=== PATIENT | female | born 1990 | race Caucasian/White ===

== ENCOUNTER → 2018-12-28 | Outpatient (REF) | payer OTHER | LOC: M SFHCLERA 10:33 | PROVIDERS: ATTEND Nurse Practitioner Family | DX: R53.81 Other malaise (principal) ==

== ENCOUNTER → 2020-02-23 | Outpatient (REF) | payer OTHER ==
[2020-02-23 15:19] LABS: BASO % 0.6 % (0.0-1.0); EOS # 0.2 10^3/uL (0.0-0.5); EOS % 2.8 % (0.0-3.0); HEMATOCRIT 44.5 % (36.0-47.0); HEMOGLOBIN 14.5 g/dl (12.0-15.5); LYMPH # 2.1 10^3/uL (1.5-5.0); LYMPH % 29.1 % (24.0-44.0); MEAN CORPUSCULAR HEMOGLOBIN 29.3 pg (27.0-33.0); MEAN CORPUSCULAR HGB CONC 32.6 g/dl (32.0-36.5); MEAN CORPUSCULAR VOLUME 89.9 fl (80.0-96.0); MONO # 0.4 10^3/uL (0.0-0.8); NEUTROPHILS # 4.5 10^3/uL (1.5-8.5); NEUTROPHILS % 62.2 % (36.0-66.0); PLATELET COUNT, AUTOMATED 190 10^3/uL (150-450); RED BLOOD COUNT 4.95 10^6/uL (4.00-5.40); WHITE BLOOD COUNT 7.2 10^3/uL (4.0-10.0)
[2020-02-23 15:37] LABS: ALBUMIN 3.3 GM/DL (3.2-5.2); ALT/SGPT 20 U/L (12-78); BILIRUBIN,TOTAL 0.4 MG/DL (0.2-1.0); BLOOD UREA NITROGEN 13 MG/DL (7-18); CALCIUM LEVEL 9.2 MG/DL (8.5-10.1); CARBON DIOXIDE LEVEL 29 MEQ/L (21-32); CHLORIDE LEVEL 102 MEQ/L (98-107); CHOLESTEROL LEVEL 235 MG/DL (<200); CHOLESTEROL RISK RATIO 4.051 (<5); CREATININE FOR GFR 0.61 MG/DL (0.55-1.30); FREE T4 1.07 NG/DL (0.76-1.46); GLOMERULAR FILTRATION RATE > 60.0 (>60); GLUCOSE, FASTING 194 MG/DL (70-100); HDL CHOLESTEROL 58 MG/DL (>40); LDL CHOLESTEROL 139 MG/DL (<100); NON-HDL-C 177 MG/DL; POTASSIUM SERUM 4.3 MEQ/L (3.5-5.1); SODIUM LEVEL 135 MEQ/L (136-145); TOTAL 25(OH) VITAMIN D 15.4 NG/ML (30.0-100.0); TOTAL PROTEIN 7.8 GM/DL (6.4-8.2); TRIGLYCERIDES LEVEL 188 MG/DL (<150)
[2020-02-23 15:42] LABS: HEMOGLOBIN A1c 8.9 %
== END ==
LOC: M LAB REF 14:44
PROVIDERS: ATTEND Physician Assistant
DX: Z68.42 Body mass index [BMI] 45.0-49.9, adult (principal); E66.01 Morbid (severe) obesity due to excess calories; Z83.49 Family history of other endocrine, nutritional and metabolic diseases; E28.2 Polycystic ovarian syndrome; R03.0 Elevated blood-pressure reading, without diagnosis of hypertension; F17.200 Nicotine dependence, unspecified, uncomplicated

== ENCOUNTER → 2020-08-27 | Outpatient (REF) | payer OTHER ==
[2020-08-27 13:56] LABS: BASO % 0.4 % (0.0-1.0); EOS # 0.2 10^3/uL (0.0-0.5); EOS % 1.8 % (0.0-3.0); HEMATOCRIT 45.5 % (36.0-47.0); HEMOGLOBIN 14.3 g/dl (12.0-15.5); LYMPH # 2.4 10^3/uL (1.5-5.0); LYMPH % 24.9 % (24.0-44.0); MEAN CORPUSCULAR HGB CONC 31.4 g/dl (32.0-36.5); MEAN CORPUSCULAR VOLUME 89.2 fl (80.0-96.0); MONO # 0.5 10^3/uL (0.0-0.8); MONO % 5.4 % (0.0-5.0); NEUTROPHILS # 6.5 10^3/uL (1.5-8.5); NEUTROPHILS % 67.2 % (36.0-66.0); PLATELET COUNT, AUTOMATED 188 10^3/uL (150-450); WHITE BLOOD COUNT 9.7 10^3/uL (4.0-10.0)
[2020-08-27 14:11] LABS: HEMOGLOBIN A1c 6.8 %
[2020-08-27 14:27] LABS: ALBUMIN 3.9 GM/DL (3.2-5.2); ALT/SGPT 18 U/L (12-78); BILIRUBIN,TOTAL 0.4 MG/DL (0.2-1.0); BLOOD UREA NITROGEN 12 MG/DL (7-18); CALCIUM LEVEL 9.1 MG/DL (8.5-10.1); CARBON DIOXIDE LEVEL 28 MEQ/L (21-32); CHLORIDE LEVEL 105 MEQ/L (98-107); CHOLESTEROL LEVEL 164 MG/DL (<200); CHOLESTEROL RISK RATIO 3.813 (<5); CREATININE FOR GFR 0.69 MG/DL (0.55-1.30); FREE T4 0.97 NG/DL (0.76-1.46); GLOMERULAR FILTRATION RATE > 60.0 (>60); GLUCOSE, FASTING 118 MG/DL (70-100); HDL CHOLESTEROL 43 MG/DL (>40); LDL CHOLESTEROL 95 MG/DL (<100); NON-HDL-C 121 MG/DL; POTASSIUM SERUM 4.2 MEQ/L (3.5-5.1); SODIUM LEVEL 139 MEQ/L (136-145); TOTAL PROTEIN 7.8 GM/DL (6.4-8.2); TRIGLYCERIDES LEVEL 128 MG/DL (<150)
[2020-08-27 14:28] LABS: HEPATITIS B SURFACE ANTIBODY POSITIVE (POSITIVE); TOTAL 25(OH) VITAMIN D 27.6 NG/ML (30.0-100.0)
[2020-08-27 18:19] LABS: CREATININE, URINE 26.3 MG/DL
== END ==
LOC: M LAB REF 12:42
PROVIDERS: ATTEND Physician Assistant
DX: Z76.89 Persons encountering health services in other specified circumstances (principal); E55.9 Vitamin D deficiency, unspecified; E78.2 Mixed hyperlipidemia; E11.65 Type 2 diabetes mellitus with hyperglycemia

== ENCOUNTER 2020-10-17 11:19 | Emergency (ER) | payer OTHER ==
[~2020-10-17] VITALS: Ht 165.1 cm; Wt 132.5 kg
[2020-10-17] MEDS ORDERED: METF10004 (11:32)
[2020-10-17] MEDS ORDERED: ERRI0.355 (11:32)
[2020-10-17] MEDS ORDERED: ATOR1TAB19 (11:32)
[2020-10-17 12:40] LABS: BASO # 0.1 10^3/uL (0.0-0.2); BASO % 0.5 % (0.0-1.0); EOS # 0.2 10^3/uL (0.0-0.5); HEMATOCRIT 41.7 % (36.0-47.0); HEMOGLOBIN 13.2 g/dl (12.0-15.5); LYMPH # 2.7 10^3/uL (1.5-5.0); MEAN CORPUSCULAR HEMOGLOBIN 27.6 pg (27.0-33.0); MEAN CORPUSCULAR HGB CONC 31.7 g/dl (32.0-36.5); MEAN CORPUSCULAR VOLUME 87.1 fl (80.0-96.0); MONO # 0.5 10^3/uL (0.0-0.8); MONO % 4.7 % (0.0-5.0); NEUTROPHILS # 6.5 10^3/uL (1.5-8.5); NEUTROPHILS % 65.4 % (36.0-66.0); PLATELET COUNT, AUTOMATED 207 10^3/uL (150-450); RED BLOOD COUNT 4.79 10^6/uL (4.00-5.40); WHITE BLOOD COUNT 9.9 10^3/uL (4.0-10.0)
[2020-10-17 12:50] LABS: INR 0.86; PROTHROMBIN TIME 11.9 SECONDS (12.5-14.3)
[2020-10-17 12:51] LABS: PARTIAL THROMBOPLASTIN TIME 28.1 SECONDS (24.2-38.5)
[2020-10-17 13:08] LABS: HCG, SERUM QUALITATIVE NEGATIVE (NEGATIVE)
[2020-10-17 13:28] LABS: ALBUMIN 3.5 GM/DL (3.2-5.2); ALT/SGPT 23 U/L (12-78); AMYLASE 47 U/L (25-115); BILIRUBIN,DIRECT < 0.1 MG/DL (0.0-0.2); BILIRUBIN,TOTAL 0.2 MG/DL (0.2-1.0); BLOOD UREA NITROGEN 9 MG/DL (7-18); CALCIUM LEVEL 9.1 MG/DL (8.5-10.1); CARBON DIOXIDE LEVEL 29 MEQ/L (21-32); CHLORIDE LEVEL 107 MEQ/L (98-107); CK-MB VALUE MASS < 1.0 NG/ML (<3.6); CPK CREATINE PHOSPHOKINASE 114 U/L (26-192); CREATININE FOR GFR 0.58 MG/DL (0.55-1.30); ETHYL ALCOHOL (ETHANOL) < 0.003 % (0.000-0.010); GLOMERULAR FILTRATION RATE > 60.0 (>60); GLUCOSE, FASTING 122 MG/DL (70-100); LIPASE 152 U/L (73-393); MB/CK RELATIVE INDEX 0.88 (< OR =4); POTASSIUM SERUM 4.4 MEQ/L (3.5-5.1); SODIUM LEVEL 140 MEQ/L (136-145); TOTAL PROTEIN 7.4 GM/DL (6.4-8.2); TROPONIN I < 0.02 NG/ML (< 0.10)
[2020-10-17] MEDS ORDERED: ISOVUE-370 76% 100ML VIAL As Ordered ONE (13:37)
--- NOTE | 2020-10-17 14:00 | REP ---
INDICATION: Trauma. COMPARISON: None. TECHNIQUE: Helical scanning is acquired and overlapping 2 mm high resolution axial images were generated and reviewed at bone and soft tissue window settings. Coronal and sagittal multiplanar re-formations images are generated. FINDINGS: There is no evidence of cervical spine element fracture. No skull base fracture is seen. Cervical vertebral body heights are preserved. Alignment is normal. Facet joints are normally aligned bilaterally at each cervical level on multiplanar re-formations images. There is no evidence of intraspinal or paraspinal hematoma. No extra vertebral abnormality is seen. There is some straightening of the normal cervical lordosis. IMPRESSION: Straightening. Otherwise negative CT study of the cervical spine. No traumatic abnormality noted.. <Electronically signed by Blayne Prater > 10/17/20 2020
--- NOTE | 2020-10-17 14:08 | REP ---
INDICATION: TRAUMA. COMPARISON: None. TECHNIQUE: Helical scanning is acquired and 4 mm axial images re-formatted. Coronal and sagittal MPR images are generated. IV contrast was administered for concurrently performed chest CT study. 100 mL of intravenous Isovue 370 is administered. FINDINGS: Lumbar vertebral body heights are preserved. Alignment is normal. There is no evidence of spondylolysis or spondylolisthesis. No fracture or collapse is seen. No paravertebral soft tissue mass is appreciated. Pedicles and posterior elements are intact. No spinous or transverse process fracture is seen. The upper sacrum appears intact. No extra spinal hematoma or mass is seen. At L4-5, there is disc space narrowing and a right central broad-based focal disc protrusion is suspected producing mild thecal sac compression. At L5-S1, there is a right posterior focal disc protrusion which appears to contact the exiting right S1 root. This has a partially calcified margin. IMPRESSION: No fracture or other traumatic abnormality noted. A broad-based central disc protrusion at L4-5 and a right posterior disc protrusion at L5-S1 are noted incidentally. <Electronically signed by Blayne Prater > 10/17/20 [id number]
--- NOTE | 2020-10-17 14:08 | REP ---
INDICATION: Trauma. COMPARISON: None. TECHNIQUE: CT of the chest with IV contrast. FINDINGS: There is no pneumothorax, hemothorax or pulmonary contusion. There is no mediastinal hematoma. The thoracic aorta is unremarkable. Cardiac size is normal. There is no pericardial fluid collection. There is no clavicle or scapular fracture. No rib, sternal or thoracic vertebral fractures are identified. IMPRESSION: Essentially negative CT study of the chest. <Electronically signed by Clinton Johnson > 10/17/20 1994
--- NOTE | 2020-10-17 14:15 | REP ---
INDICATION: Trauma. COMPARISON: None. TECHNIQUE: CT study of the abdomen and pelvis with IV contrast performed contiguously with the chest CT. FINDINGS: There is no hemoperitoneum or pneumoperitoneum. The liver, gallbladder, pancreas, spleen, adrenals, kidneys and abdominal aorta are unremarkable. There is no retroperitoneal hematoma. The bowel and mesentery are unremarkable. Pelvis: The uterus, adnexa and bladder are unremarkable. There are pelvic calcifications, likely phleboliths. No lumbar, pelvic or hip fractures are identified. FINDINGS: See the above, . IMPRESSION: Essentially negative CT study of the abdomen and pelvis. <Electronically signed by Clinton Johnson > 10/17/20 0735
--- NOTE | 2020-10-17 14:18 | REP ---
INDICATION: TRAUMA. COMPARISON: None. TECHNIQUE: Helical scanning is acquired and 4 mm axial images are generated. Coronal and sagittal MPR images are generated. FINDINGS: Thoracic vertebral body heights are preserved and alignment is normal. No fracture or collapse is seen. Disc spaces are maintained. The pedicles and posterior elements are intact. No paravertebral mass or hematoma is appreciated. The visualized lung kaur are clear. No posterior rib fracture is appreciated. IMPRESSION: Negative CT study of the thoracic spine. No fracture seen <Electronically signed by Blayne Prater > 10/17/20 [id number]
--- NOTE | 2020-10-17 14:42 | REP ---
INDICATION: Trauma. COMPARISON: None. TECHNIQUE: AP view of the pelvis. FINDINGS: The bony pelvic ring is intact. No pelvic or sacral fracture is seen. No hip fracture is seen. Contrast opacified urinary bladder appears intact. Visualized bowel gas pattern is unremarkable. IMPRESSION: Negative AP pelvis. The urinary bladder is filled with contrast opacified urine and has an intact appearance. <Electronically signed by Blayne Prater > 10/17/20 2222
--- NOTE | 2020-10-17 14:44 | REP ---
INDICATION: Trauma. Bilateral humerus. COMPARISON: No comparison is.. TECHNIQUE: Four views, 2 on each side. FINDINGS: Four views of the right and left humerus demonstrate normal bones, joints, and soft tissues. No fracture or subluxation is seen. There is a intravenous cannula visible in the antecubital fossa on the right. No opaque foreign body noted. IMPRESSION: Negative bilateral humerus radiographs. <Electronically signed by Blayne Prater > 10/17/20 [id number]
--- NOTE | 2020-10-17 14:46 | REP ---
INDICATION: Trauma. Bilateral elbow. COMPARISON: None. TECHNIQUE: Eight views, 4 of each elbow. FINDINGS: Four views of the the right and left elbow each demonstrate normal bones, joints, and soft tissues. No fracture or subluxation is seen. There is an in antecubital fossa intravenous cannula visible on the right. There is mild coronoid process spurring bilaterally. No evidence of joint effusion.. IMPRESSION: Mild spurring of the coronoid process of each elbow noted incidentally. No fracture, subluxation, or joint effusion.. <Electronically signed by Blayne Prater > 10/17/20 1425
--- NOTE | 2020-10-17 15:04 | REP ---
INDICATION: Trauma. COMPARISON: None. TECHNIQUE: Helical scanning is acquired. 5 mm axial images were reformatted. Coronal MPR images were generated. FINDINGS: Bone window settings demonstrate an intact bony calvarium. There is no evidence of skull fracture or incidental bony calvarial lesion. There is a small mucous retention cyst in the left maxillary sinus. The visualized paranasal sinuses appear otherwise clear. No intraorbital abnormality is seen. On soft tissue window setting images; the lateral, third, and fourth ventricles are normal in size and position. Suazo-white differentiation pattern is normal above and below the tentorium. There are is no evidence of intracranial hemorrhage. No mass, edema, infarction, or midline shift is seen. No extra-axial fluid collection is appreciated. IMPRESSION: There is a small left maxillary sinus mucous retention cyst. Otherwise negative noncontrast brain CT. No acute intracranial abnormality. No skull fracture or intracranial injury seen.. <Electronically signed by Blayne Prater > 10/17/20 1500
[2020-10-17 15:27] LABS: AMPHETAMINES LEVEL URINE NEGATIVE (NEGATIVE); BARBITURATES URINE NEGATIVE (NEGATIVE); BENZODIAZEPINES URINE NEGATIVE (NEGATIVE); CANNABINOIDS URINE POSITIVE (NEGATIVE); COCAINE METABOLITE URINE NEGATIVE (NEGATIVE); METHADONE URINE NEGATIVE (NEGATIVE); OPIATES URINE NEGATIVE (NEGATIVE); PHENCYCLIDINE URINE NEGATIVE (NEGATIVE)
[2020-10-17 15:33] VITALS: BP 164/100
[2020-10-17] MEDS ORDERED: NAPR-837 PO (15:59)
[2020-10-17] MEDS ORDERED: ROBA750T4 PO (15:59)
== END 2020-10-17 16:06 | disposition home or self-care (01) ==
LOC: M ED 11:19
DX: T14.8XXA Other injury of unspecified body region, initial encounter (principal); V03.10XA Pedestrian on foot injured in collision with car, pick-up truck or van in traffic accident, initial encounter; Y92.410 Unspecified street and highway as the place of occurrence of the external cause; Z79.899 Other long term (current) drug therapy
CPT/HCPCS: 36415; 70450; 71260; 72125; 72128; 72131; 72170; 73060; 73080; 74177; 80048; 80076; 80307; 81001; 82150; 82550; 82553; 83605; 83690; 84484; 84703; 85025; 85610; 85730; 86850; 86900; 86901; 93041; 94760; 99285; G0480; Q9967

== ENCOUNTER → 2020-12-04 | Outpatient (REF) | payer OTHER ==
[~2020-12-04] MED LIST: ATOR1TAB19; ERRI0.355; METF10004; NAPR-837 PO; ROBA750T4 PO
[2020-12-04 17:09] LABS: BASO % 0.4 % (0.0-1.0); EOS # 0.2 10^3/uL (0.0-0.5); EOS % 2.2 % (0.0-3.0); HEMATOCRIT 43.1 % (36.0-47.0); HEMOGLOBIN 13.7 g/dl (12.0-15.5); LYMPH # 2.3 10^3/uL (1.5-5.0); LYMPH % 22.5 % (24.0-44.0); MEAN CORPUSCULAR HGB CONC 31.8 g/dl (32.0-36.5); MEAN CORPUSCULAR VOLUME 88.1 fl (80.0-96.0); MONO # 0.4 10^3/uL (0.0-0.8); MONO % 4.3 % (0.0-5.0); NEUTROPHILS # 7.2 10^3/uL (1.5-8.5); NEUTROPHILS % 70.2 % (36.0-66.0); PLATELET COUNT, AUTOMATED 195 10^3/uL (150-450); RED BLOOD COUNT 4.89 10^6/uL (4.00-5.40); WHITE BLOOD COUNT 10.3 10^3/uL (4.0-10.0)
[2020-12-04 17:41] LABS: BLOOD UREA NITROGEN 12 MG/DL (7-18); CARBON DIOXIDE LEVEL 30 MEQ/L (21-32); CHLORIDE LEVEL 101 MEQ/L (98-107); GLOMERULAR FILTRATION RATE > 60.0 (>60); GLUCOSE, FASTING 155 MG/DL (70-100); POTASSIUM SERUM 4.9 MEQ/L (3.5-5.1); SODIUM LEVEL 136 MEQ/L (136-145)
[2020-12-04 17:42] LABS: ALBUMIN 3.7 GM/DL (3.2-5.2); ALT/SGPT 23 U/L (12-78); BILIRUBIN,TOTAL 0.3 MG/DL (0.2-1.0); CALCIUM LEVEL 9.5 MG/DL (8.5-10.1); CHOLESTEROL LEVEL 166 MG/DL (<200); CHOLESTEROL RISK RATIO 3.387 (<5); HDL CHOLESTEROL 49 MG/DL (>40); LDL CHOLESTEROL 96 MG/DL (<100); NON-HDL-C 117 MG/DL; TOTAL PROTEIN 7.8 GM/DL (6.4-8.2); TRIGLYCERIDES LEVEL 106 MG/DL (<150)
== END ==
LOC: M LAB REF 15:54
PROVIDERS: ATTEND Physician Assistant
DX: E11.9 Type 2 diabetes mellitus without complications (principal)

== ENCOUNTER → 2022-12-22 | Outpatient (REF) | payer OTHER ==
[2022-12-22 18:16] LABS: CREATININE, URINE 44.2 MG/DL; MALB URINE SIEMENS < 3.0 MG/DL; MAU/CREAT RATIO 6.7 MCG/MG (0.0-30.0)
== END ==
LOC: M LAB REF 16:43
PROVIDERS: ATTEND Physician Assistant
DX: E11.65 Type 2 diabetes mellitus with hyperglycemia (principal)

== ENCOUNTER → 2022-12-31 | Outpatient (REF) | payer BC, OTHER ==
[2022-12-31 14:15] LABS: HEMATOCRIT 41.8 % (36.0-47.0); HEMOGLOBIN 13.4 g/dl (12.0-15.5); MEAN CORPUSCULAR HGB CONC 32.1 g/dl (32.0-36.5); MEAN CORPUSCULAR VOLUME 90.5 fl (80.0-96.0); PLATELET COUNT, AUTOMATED 187 10^3/uL (150-450); RED BLOOD COUNT 4.62 10^6/uL (4.00-5.40)
[2022-12-31 14:42] LABS: CREATININE, URINE 127.7 MG/DL; MALB URINE SIEMENS < 3.0 MG/DL; MAU/CREAT RATIO 2.3 MCG/MG (0.0-30.0)
[2022-12-31 14:46] LABS: BLOOD UREA NITROGEN 16 MG/DL (9-23); CALCIUM LEVEL 9.1 MG/DL (8.5-10.1); CARBON DIOXIDE LEVEL 26 MMOL/L (20-31); CHLORIDE LEVEL 104 MMOL/L (98-107); CHOLESTEROL LEVEL 149 MG/DL (<200); CHOLESTEROL RISK RATIO 3.18 (<5); CREATININE FOR GFR 0.58 MG/DL (0.55-1.30); GLOMERULAR FILTRATION RATE > 60.0 (>60); GLUCOSE, FASTING 129 MG/DL (60-100); HDL CHOLESTEROL 46.8 MG/DL (>40); NON-HDL-C 102 MG/DL; SODIUM LEVEL 136 MMOL/L (136-145)
[2022-12-31 18:44] LABS: TRIGLYCERIDES LEVEL 101 MG/DL (<150)
== END ==
LOC: M LAB REF 12:55
PROVIDERS: ATTEND Physician Assistant
DX: E11.65 Type 2 diabetes mellitus with hyperglycemia (principal); E78.2 Mixed hyperlipidemia; Z11.59 Encounter for screening for other viral diseases

== ENCOUNTER 2023-03-04 16:15 | Emergency (ER) | payer OTHER ==
[~2023-03-04] VITALS: Ht 165.1 cm; Wt 131.0 kg
[2023-03-04] MEDS ORDERED: TRUL10IN (16:23)
[2023-03-04] MEDS ORDERED: VITA200016 (16:23)
[2023-03-04] MEDS ORDERED: IBUPROFEN 600MG TAB PO ONE (17:15)
[2023-03-04] MEDS ORDERED: IBUP-1022 PO (19:33)
[2023-03-04 20:11] VITALS: BP 142/85
== END 2023-03-04 20:15 | disposition home or self-care (01) ==
LOC: M ED 16:15
DX: S60.222A Contusion of left hand, initial encounter (principal); W22.8XXA Striking against or struck by other objects, initial encounter; Y92.019 Unspecified place in single-family (private) house as the place of occurrence of the external cause; Y93.89 Activity, other specified; Y99.8 Other external cause status; E11.9 Type 2 diabetes mellitus without complications; E78.5 Hyperlipidemia, unspecified; Z88.5 Allergy status to narcotic agent; Z88.1 Allergy status to other antibiotic agents; Z88.8 Allergy status to other drugs, medicaments and biological substances; Z79.84 Long term (current) use of oral hypoglycemic drugs; Z79.899 Other long term (current) drug therapy

== ENCOUNTER → 2023-10-27 | Outpatient (CLI) | payer OTHER ==
[~2023-10-27] MED LIST changes: +IBUP-1022 PO; +TRUL10IN; +VITA200016
[2023-10-27 14:15] LABS: HEMATOCRIT 36.6 % (36.0-47.0); HEMOGLOBIN 12.1 g/dl (12.0-15.5); MEAN CORPUSCULAR HEMOGLOBIN 29.6 pg (27.0-33.0); MEAN CORPUSCULAR HGB CONC 33.1 g/dl (32.0-36.5); MEAN CORPUSCULAR VOLUME 89.5 fl (80.0-96.0); PLATELET COUNT, AUTOMATED 170 10^3/uL (150-450); RED BLOOD COUNT 4.09 10^6/uL (4.00-5.40); WHITE BLOOD COUNT 9.6 10^3/uL (4.0-10.0)
[2023-10-27 15:03] LABS: HEMOGLOBIN A1c 6.3 % (4.0-6.0)
[2023-10-27 15:16] LABS: HIV 1&2 SCREEN NEGATIVE (NEGATIVE)
[2023-10-27 15:24] LABS: HEPATITIS C VIRUS ABY INDEX 0.05 INDEX (<0.8)
[2023-10-27 15:36] LABS: CHLAMYDIA DNA AMPLIFICATION NEGATIVE (NEGATIVE); GC DNA AMPLIFICATION NEGATIVE (NEGATIVE)
== END ==
LOC: M PLALAB 11:15
PROVIDERS: ATTEND Advanced Practice Midwife
DX: Z34.02 Encounter for supervision of normal first pregnancy, second trimester (principal)

== ENCOUNTER → 2023-12-02 | Outpatient (CLI) | payer OTHER | LOC: M WHC 15:27 | PROVIDERS: ATTEND Specialist | DX: Z34.02 Encounter for supervision of normal first pregnancy, second trimester (principal) ==

== ENCOUNTER → 2024-01-08 | Outpatient (REF) | payer OTHER | LOC: M LAB REF 16:29 | PROVIDERS: ATTEND Physician Assistant | DX: J02.9 Acute pharyngitis, unspecified (principal) ==

== ENCOUNTER → 2024-01-27 | Outpatient (CLI) | payer OTHER ==
[2024-01-27 17:50] LABS: HEMATOCRIT 34.9 % (36.0-47.0); HEMOGLOBIN 11.4 g/dl (12.0-15.5); MEAN CORPUSCULAR HEMOGLOBIN 29.2 pg (27.0-33.0); MEAN CORPUSCULAR HGB CONC 32.7 g/dl (32.0-36.5); MEAN CORPUSCULAR VOLUME 89.5 fl (80.0-96.0); PLATELET COUNT, AUTOMATED 165 10^3/uL (150-450); WHITE BLOOD COUNT 10.5 10^3/uL (4.0-10.0)
[2024-01-27 18:10] LABS: TOTAL PROTEIN,RANDOM URINE 14.7 MG/DL (0.0-14.0)
[2024-01-27 18:14] LABS: URIC ACID 3.8 MG/DL (3.1-7.8)
[2024-01-27 18:15] LABS: CREATININE,RANDOM URINE 68.8 MG/DL
[2024-01-27 18:16] LABS: LDH LACTATE DEHYDROGENASE 195 U/L (120-246)
[2024-01-27 18:17] LABS: ALT/SGPT 14 U/L (7.0-40); AST/SGOT < 8 U/L (<34); BILIRUBIN,TOTAL < 0.2 MG/DL (0.3-1.2); CREATININE FOR GFR 0.48 MG/DL (0.55-1.30); GLOMERULAR FILTRATION RATE > 60.0 (>60)
== END ==
LOC: M PLALAB 16:20
PROVIDERS: ATTEND Specialist
DX: Z34.02 Encounter for supervision of normal first pregnancy, second trimester (principal)

== ENCOUNTER → 2024-02-17 | Outpatient (CLI) | payer OTHER ==
[2024-02-17 17:37] LABS: HEMATOCRIT 35.2 % (36.0-47.0); HEMOGLOBIN 11.5 g/dl (12.0-15.5); MEAN CORPUSCULAR HEMOGLOBIN 28.9 pg (27.0-33.0); MEAN CORPUSCULAR HGB CONC 32.7 g/dl (32.0-36.5); MEAN CORPUSCULAR VOLUME 88.4 fl (80.0-96.0); PLATELET COUNT, AUTOMATED 143 10^3/uL (150-450); RED BLOOD COUNT 3.98 10^6/uL (4.00-5.40)
[2024-02-17 17:54] LABS: URIC ACID 4.3 MG/DL (3.1-7.8)
[2024-02-17 17:56] LABS: LDH LACTATE DEHYDROGENASE 198 U/L (120-246)
[2024-02-17 17:57] LABS: ALT/SGPT 15 U/L (7.0-40); AST/SGOT 10 U/L (<34); BILIRUBIN,TOTAL < 0.2 MG/DL (0.3-1.2); GLOMERULAR FILTRATION RATE > 60.0 (>60)
[2024-02-17 18:33] LABS: TOTAL PROTEIN,RANDOM URINE 68.4 MG/DL (0.0-14.0)
[2024-02-17 18:38] LABS: CREATININE,RANDOM URINE 197.9 MG/DL
[2024-02-17 18:59] LABS: HEMOGLOBIN A1c 7.8 % (4.0-6.0)
== END ==
LOC: M PLALAB 15:45
PROVIDERS: ATTEND Advanced Practice Midwife
DX: Z34.03 Encounter for supervision of normal first pregnancy, third trimester (principal)

== ENCOUNTER 2024-02-19 16:22 | Observation (INO) | payer OTHER, BC ==
[2024-02-19] VITALS (21 sets, daily range): BP systolic 116–224; BP diastolic 57–108; O2SAT 100
[~2024-02-19] VITALS: Ht 167.6 cm; Wt 151.2 kg
[2024-02-19] MEDS ORDERED: ASPI81CH33 PO (17:01)
[2024-02-19] MEDS ORDERED: [UNRECOGNIZED DRUG - CODE] (17:01)
[2024-02-19] MEDS ORDERED: CETI5SOL3 PO (17:01)
[2024-02-19] MEDS ORDERED: PRENTAB9 PO (17:03)
[2024-02-19] MEDS ORDERED: HOME MED LIST COMPLETE! XX SCH (17:05)
[2024-02-19] MEDS: NIFEdipine 10 MG CAP PO STA (17:54)
[2024-02-19 18:45] LABS: HEMATOCRIT 36.3 % (36.0-47.0); HEMOGLOBIN 11.9 g/dl (12.0-15.5); MEAN CORPUSCULAR HGB CONC 32.8 g/dl (32.0-36.5); MEAN CORPUSCULAR VOLUME 88.5 fl (80.0-96.0); PLATELET COUNT, AUTOMATED 133 10^3/uL (150-450); WHITE BLOOD COUNT 10.6 10^3/uL (4.0-10.0)
[2024-02-19] MEDS: NS 1,000 ML IV SCH (18:48)
[2024-02-19] MEDS: INSULIN REGULAR IN 0.9 % NACL 100 UNIT in IV 1 EA IV SCH (18:53)
[2024-02-19] MEDS: BETAMETHASONE SOLUSPAN 6MG/ML 5ML VIAL IM SCH (18:54)
[2024-02-19 19:04] LABS: TOTAL PROTEIN,RANDOM URINE 63.7 MG/DL (0.0-14.0)
[2024-02-19 19:06] LABS: URIC ACID 4.7 MG/DL (3.1-7.8)
[2024-02-19 19:08] LABS: LDH LACTATE DEHYDROGENASE 189 U/L (120-246)
[2024-02-19] MEDS: LABETALOL 100MG/20ML VIAL IV STA ×3 (19:08→19:51)
[2024-02-19 19:09] LABS: ALT/SGPT 18 U/L (7.0-40); AST/SGOT 14 U/L (<34); BILIRUBIN,TOTAL 0.2 MG/DL (0.3-1.2); CREATININE FOR GFR 0.47 MG/DL (0.55-1.30); GLOMERULAR FILTRATION RATE > 60.0 (>60)
[2024-02-19 19:36] LABS: CREATININE,RANDOM URINE 254.3 MG/DL
[2024-02-19] MEDS ORDERED: LABETALOL 100MG/20ML VIAL IV STA ×2 (19:47)
[2024-02-19] MEDS: INSULIN IV RATE CHANGE DOCUMENTATION ML/HR XX SCH (21:00)
[2024-02-20] VITALS (22 sets, daily range): BP systolic 83–181; BP diastolic 37–84; O2SAT 100
[2024-02-20] MEDS: LABETALOL 200 MG TAB PO SCH (00:05)
[2024-02-20] MEDS: HumuLIN N INSULIN (NovoLIN N) PER UNIT SC SCH ×2 (10:17→18:09)
[2024-02-20] MEDS: HumuLIN R (REGULAR) INSULIN (NovoLIN R) **100U/ML** PER UNIT SC SCH ×2 (10:18→18:10)
[2024-02-20] MEDS ORDERED: D5W/0.9% SODIUM CHLORIDE 1,000 ML IV SCH (10:30)
[2024-02-20] MEDS: ACETAMINOPHEN 500 MG TAB PO PRN (16:15)
[2024-02-21] VITALS (12 sets, daily range): BP systolic 127–171; BP diastolic 60–81
[2024-02-21] MEDS: NIFEdipine 30MG XL TAB PO SCH (08:38)
[2024-02-21] MEDS ORDERED: INSU100V19 SC ×2 (17:12)
[2024-02-21] MEDS ORDERED: LABE20TAB PO (17:12)
[2024-02-21] MEDS ORDERED: NIFE1TAB52 PO (17:12)
[2024-02-21] MEDS ORDERED: Insulin Human Nph SC ×2 (17:12)
== END 2024-02-21 17:25 | disposition home or self-care (01) ==
LOC: M LDO 16:22 → M LDI 17:55
PROVIDERS: ADMIT Advanced Practice Midwife; ATTEND Advanced Practice Midwife
DX: O10.013 Pre-existing essential hypertension complicating pregnancy, third trimester (principal); O24.113 Pre-existing type 2 diabetes mellitus, in pregnancy, third trimester; O99.213 Obesity complicating pregnancy, third trimester; Z68.43 Body mass index [BMI] 50.0-59.9, adult; O99.513 Diseases of the respiratory system complicating pregnancy, third trimester; J45.909 Unspecified asthma, uncomplicated; O09.513 Supervision of elderly primigravida, third trimester; Z83.3 Family history of diabetes mellitus; Z82.49 Family history of ischemic heart disease and other diseases of the circulatory system; Z3A.30 30 weeks gestation of pregnancy; Z88.5 Allergy status to narcotic agent; Z88.8 Allergy status to other drugs, medicaments and biological substances; Z88.3 Allergy status to other anti-infective agents; Z88.2 Allergy status to sulfonamides; Z88.6 Allergy status to analgesic agent; Z91.018 Allergy to other foods; Z91.048 Other nonmedicinal substance allergy status; Z79.899 Other long term (current) drug therapy; Z79.82 Long term (current) use of aspirin
CPT/HCPCS: 36415; 59025; 76816; 76820; 82247; 82570; 83615; 84156; 84450; 84460; 84550; 85027; 96361; 96365; 96366; 96372; 96375; 96376; G0463; J0702; J1815; J1920

== ENCOUNTER 2024-03-03 14:51 | Outpatient (CLI) | payer OTHER, BC ==
[~2024-03-03] VITALS: Ht 167.6 cm; Wt 157.4 kg
[~2024-03-03 14:51] MED LIST changes: +ASPI81CH33 PO; +CETI5SOL3 PO; +INSU100V19 SC; +Insulin Human Nph SC; +LABE20TAB PO; +NIFE1TAB52 PO; +PRENTAB9 PO; +[UNRECOGNIZED DRUG - CODE]
[2024-03-03] MEDS ORDERED: DEXTROSE 50% 50ML SYRINGE IV PRN (15:10)
[2024-03-03] MEDS ORDERED: GLUCOSE 4 GM CHEW PO PRN (15:10)
[2024-03-03] MEDS ORDERED: GLUCAGON INJ 1MG VIAL SC PRN (15:10)
[2024-03-03 15:32] VITALS: BP 147/70
== END 2024-03-03 18:16 | disposition home or self-care (01) ==
LOC: M LDO 14:51
PROVIDERS: ATTEND Obstetrics & Gynecology
DX: O24.313 Unspecified pre-existing diabetes mellitus in pregnancy, third trimester (principal); O16.3 Unspecified maternal hypertension, third trimester; O99.213 Obesity complicating pregnancy, third trimester; E66.9 Obesity, unspecified; Z3A.32 32 weeks gestation of pregnancy
CPT/HCPCS: 59025; 76819; 76820; G0463

== ENCOUNTER → 2024-03-25 | Outpatient (REF) | payer BC, OTHER | LOC: M PLALAB 07:29 | PROVIDERS: ATTEND Obstetrics & Gynecology | DX: Z36.85 Encounter for antenatal screening for Streptococcus B (principal); Z3A.35 35 weeks gestation of pregnancy ==

== ENCOUNTER → 2024-03-25 | Outpatient (CLI) | payer OTHER | LOC: M WHC 08:49 | PROVIDERS: ATTEND Obstetrics & Gynecology | DX: O28.8 Other abnormal findings on antenatal screening of mother (principal); Z3A.00 Weeks of gestation of pregnancy not specified ==

== ENCOUNTER → 2024-03-31 | Outpatient (CLI) | payer OTHER ==
[~2024-03-31] MED LIST changes: +INSUN SC
== END ==
LOC: M WHC 11:29
PROVIDERS: ATTEND Obstetrics & Gynecology
DX: O24.113 Pre-existing type 2 diabetes mellitus, in pregnancy, third trimester (principal); Z3A.36 36 weeks gestation of pregnancy

== ENCOUNTER → 2024-04-18 | Outpatient (REF) | payer OTHER, BC ==
[~2024-04-18] MED LIST changes: +ATOR40TA75 PO; +CLONI1TA PO; +SYNT25TA PO
== END ==
LOC: M LABWUC 13:04
PROVIDERS: ATTEND Physician Assistant
DX: E03.9 Hypothyroidism, unspecified (principal)

== ENCOUNTER → 2024-05-06 | Outpatient (CLI) | payer OTHER ==
[2024-05-06 12:24] LABS: BLOOD UREA NITROGEN 14 MG/DL (9-23); CALCIUM LEVEL 9.4 MG/DL (8.5-10.1); CARBON DIOXIDE LEVEL 29 MMOL/L (20-31); CHLORIDE LEVEL 105 MMOL/L (98-107); GLOMERULAR FILTRATION RATE > 60.0 (>60); GLUCOSE, FASTING 110 MG/DL (60-100); MAGNESIUM LEVEL 1.7 MG/DL (1.8-2.4); PHOSPHORUS LEVEL 4.5 MG/DL (2.5-4.9); POTASSIUM SERUM 4.7 MMOL/L (3.5-5.1); SODIUM LEVEL 138 MMOL/L (136-145)
== END ==
LOC: M LAB 10:48
PROVIDERS: ATTEND Nurse Practitioner Family
DX: E11.65 Type 2 diabetes mellitus with hyperglycemia (principal); E03.9 Hypothyroidism, unspecified

== ENCOUNTER → 2024-05-16 | Outpatient (CLI) | payer OTHER | LOC: M SLEEP HO 11:16 | PROVIDERS: ATTEND Physician Assistant | DX: R06.81 Apnea, not elsewhere classified (principal) ==

== ENCOUNTER → 2024-08-12 | Outpatient (REF) | payer OTHER ==
[2024-08-12 14:06] LABS: BLOOD UREA NITROGEN 11 MG/DL (9-23); CALCIUM LEVEL 9.9 MG/DL (8.5-10.1); CARBON DIOXIDE LEVEL 27 MMOL/L (20-31); CHLORIDE LEVEL 104 MMOL/L (98-107); CREATININE FOR GFR 0.61 MG/DL (0.55-1.30); GLOMERULAR FILTRATION RATE > 60.0 (>60); GLUCOSE, FASTING 144 MG/DL (60-100); MAGNESIUM LEVEL 1.6 MG/DL (1.8-2.4); POTASSIUM SERUM 4.4 MMOL/L (3.5-5.1); SODIUM LEVEL 136 MMOL/L (136-145)
[2024-08-12 14:14] LABS: HEMOGLOBIN A1c 7.3 % (4.0-6.0)
== END ==
LOC: M LAB REF 13:21
PROVIDERS: ATTEND Physician Assistant
DX: E11.9 Type 2 diabetes mellitus without complications (principal); I10 Essential (primary) hypertension; E83.42 Hypomagnesemia